=== PATIENT | female | born 1950 | race Caucasian/White ===

== ENCOUNTER 2018-02-06 11:36 | Emergency (ER) | payer MEDICARE, MEDICAID ==
[2018-02-06] MEDS ORDERED: ONDANSETRON HCL IV 4 MG/2 ML VIAL IV ONE (11:43)
[2018-02-06] MEDS ORDERED: 0.9 % SODIUM CHLORIDE 1,000 ML BAG IV ONE (11:43)
[2018-02-06] MEDS ORDERED: KETOROLAC 30 MG/ML VIAL IVP ONE (11:48)
--- NOTE | 2018-02-06 11:49 | Emergency Department Record ---
History of Present Illness - General Chief Complaint: Abdominal Pain Stated Complaint: ABD PAIN Time Seen by Provider: 02/06/18 11:42 Source: Patient Mode of Arrival: Ambulatory Limitations: No limitations - History of Present Illness Initial Comments: 68 yo female presents with abdominal pain, nausea, vomiting. The onset was two nights ago with nausea initially. She developed lower abdominal pain and had some vomiting. No blood in the vomit or stools. The pain she is having is across the lower abdomen and at times in the back on the left. No hematuria. No fever. She has had a history of hysterectomy. No dysuria. MD Complaint: Abdominal pain, Other Onset/Timin -: Days(s) (2) Location: L Flank, LLQ, RLQ Radiation: Back Severity: Moderate Severity scale (1-10): 8 Quality: Aching Consistency: Constant Improves With: Nothing Worsens With: Nothing Associated Symptoms: Anorexia, Nausea - Related Data Allergies Allergy/AdvReac Type Severity Reaction Status Date / Time codeine AdvReac Intermediate NAUSEA Verified 02/06/18 11:44 Travel Screening - Travel/Exposure Within Last 30 Days Have you traveled within the last 30 days?: No Review of Systems Constitutional: Denies: Chills, Fever, Malaise, Weakness Eyes: Denies: Eye discharge ENT: Denies: Congestion, Throat pain Respiratory: Denies: Cough Cardiovascular: Denies: Chest pain, Syncope Endocrine: Denies: Fatigue Gastrointestinal: Reports: Abdominal pain, Nausea, Vomiting. Denies: Constipation, Diarrhea, Hematemesis Genitourinary: Denies: Dysuria, Urgency Musculoskeletal: Denies: Arthralgia, Back pain, Myalgia Skin: Denies: Bruising, Change in color Neurological: Denies: Headache Psychiatric: Denies: Anxiety Hematological/Lymphatic: Denies: Easy bleeding, Easy bruising Physical Exam - General General Appearance: Alert, Oriented x3, Cooperative, No acute distress - Head Head exam: Atraumatic - Eye Eye exam: Normal appearance. negative: Conjunctival injection - ENT ENT exam: Normal exam, Mucous membranes moist Ear exam: Normal external inspection Nasal Exam: Normal inspection Mouth exam: Normal external inspection - Neck Neck exam: Normal inspection - Respiratory Respiratory exam: Normal lung sounds bilaterally. negative: Respiratory distress - Cardiovascular Cardiovascular Exam: Regular rate, Normal rhythm, Normal heart sounds - GI/Abdominal GI/Abdominal exam: Soft, Tenderness (Mild tenderness lower abdomen) - Rectal Rectal exam: Deferred - exam: Deferred - Extremities Extremities exam: Normal inspection. negative: Pedal edema, Tenderness - Back Back exam: Denies: CVA tenderness (R), CVA tenderness (L) - Neurological Neurological exam: Alert, Oriented X3 - Psychiatric Psychiatric exam: Normal affect, Normal mood. negative: Agitated, Anxious - Skin Skin exam: Dry, Intact, Normal color, Warm Course - Reevaluation(s) Reevaluation #1: No acute changes on the CBC The CMP with minimal changes to the LFT's (history of same with fatty liver) Lipase is 197 02/06/18 12:52 02/06/18 14:07 CT is consistent with 3mm left distal obstructing renal stone 02/06/18 14:39 UA is negative for infection The patient was referred to Dr Varghese for the stone and future stones 02/06/18 14:44 Pain is well controlled at [place] Medical Decision Making - Lab Data Result diagrams: 02/06/18 11:50 02/06/18 11:50 Disposition Disposition: Discharge Clinical Impression: Abdominal pain, Renal stone Disposition: Home, Self-Care Condition: (1) Good Instructions: Kidney Stones (ED), Renal Colic (ED) Additional Instructions: Return if you have fever, vomiting, uncontrolled pain You have been referred to Dr Varghese for your renal stone and the remaining stones in your kidney Strain the urine at home to look for the stone Referrals: DARIEN VARGHESE M.D. [MEDICAL DOCTOR] - [facility] Special[facility] Clinics [Provider Group] Forms: Patient Portal Access Time of Disposition: 14:11 Quality - Quality Measures Quality Measures: N/A - Blood Pressure Screening Does Patient Have Any of the Following: No Blood Pressure Classification: Pre-Hypertensive BP Reading Systolic Measurement: 148 Diastolic Measurement: 82 Screening for High Blood Pressure: < Pre-Hypertensive BP, F/U Documented > [ G8950] Pre-Hypertensive Follow-up Interventions: Referral to alternative/primary care provider.
[2018-02-06 11:57] LABS: BASO % 0.4 % (0-6); EOS % 0.4 % (0-6); GRAN % 64.4 % (47-80); HEMATOCRIT 38.7 % (35.0-47.0); LYMPH % 28.3 % (16-45); MEAN CELL VOLUME 88.8 fl (81-97); MEAN CORPUSCULAR HEMOGLOBIN 29.8 pg (27-33); MEAN CORPUSCULAR HGB CONC 33.6 g/dl (32-36); MEAN PLATELET VOLUME 8.8 fl (7.4-10.4); MONO % 6.5 % (0-9); PLATELET COUNT 259 K/uL (130-400); RED BLOOD COUNT 4.36 M/uL (3.80-5.40)
[2018-02-06 12:08] LABS: BLOOD UREA NITROGEN 17 mg/dL (8-23); CREATININE 0.8 mg/dL (0.5-0.9); EST GLOMERULAR FILTRATION RATE > 60 mL/min
[2018-02-06 12:09] LABS: TOTAL PROTEIN 6.9 g/dL (6.6-8.7)
[2018-02-06 12:11] LABS: GLUCOSE,RANDOM 175 mg/dL (74-109)
[2018-02-06 12:13] LABS: ALT/SGPT 56 U/L (<33); AST/SGOT 36 U/L (10.0-35.0)
[2018-02-06 12:14] LABS: ALB/GLOB RATIO 1.7 (1.1-1.8); ALBUMIN 4.3 g/dL (4.0-5.0); ALKALINE PHOSPHATASE 78 U/L (35-104); LIPASE 197 U/L (13-60)
[2018-02-06] MEDS ORDERED: TAMSULOSIN HCL 0.4 MG CAP.ER.24H PO ONE (14:06)
[2018-02-06] MEDS ORDERED: HYDROCODONE/APAP 5/325MG TABLET PO ONE (14:12)
[2018-02-06 14:13] LABS: URINE APPEARANCE CLEAR; URINE BILIRUBIN NEGATIVE (NEGATIVE); URINE BLOOD LARGE (NEGATIVE); URINE COLOR YELLOW; URINE GLUCOSE (UA) NEGATIVE (NEGATIVE); URINE KETONE NEGATIVE (NEGATIVE); URINE LEUKOCYTE ESTERASE TRACE (NEGATIVE); URINE NITRITE NEGATIVE (NEGATIVE); URINE PROTEIN NEGATIVE (NEGATIVE); URINE UROBILINOGEN 0.2 E.U./dL (0.20 - 1.00)
[2018-02-06 14:26] LABS: URINE EPITHELIAL CELLS 0 - 2 (FEW); URINE RBC 36 - 50 (NONE SEEN); URINE WBC 0 - 2 (0-2/hpf)
[2018-02-06 14:27] LABS: URINE BACTERIA FEW
--- NOTE | 2018-02-06 15:00 | Emergency Department Record ---
History of Present Illness - General Chief Complaint: Abdominal Pain Stated Complaint: ABD PAIN Time Seen by Provider: 02/06/18 11:42 Source: Patient Mode of Arrival: Ambulatory Limitations: No limitations - History of Present Illness Initial Comments: 68 yo female presents with abdominal pain that radiates to the back for the last 2 days. She has had some nausea and vomiting as well. No fevers. NO diarrhea. No blood in the stools or vomit. No rash. She has had renal stones in the past. This is different. No history of abdominal surgery except hysterectomy. MD Complaint: Abdominal pain, Other Onset/Timin -: Days(s) (2) Location: L Flank, LLQ, RLQ Radiation: Back Severity: Moderate Severity scale (1-10): 8 Quality: Aching Consistency: Constant Improves With: Nothing Worsens With: Nothing Associated Symptoms: Anorexia, Nausea - Related Data Previous Rx's Medication Instructions Recorded Ondansetron [Zofran Odt] 4 mg PO Q8H #12 tab.rapdis 02/06/18 Allergies Allergy/AdvReac Type Severity Reaction Status Date / Time codeine AdvReac Intermediate NAUSEA Verified 02/06/18 11:44 Travel Screening - Travel/Exposure Within Last 30 Days Have you traveled within the last 30 days?: No Review of Systems Constitutional: Denies: Chills, Fever, Malaise, Weakness Eyes: Denies: Eye discharge ENT: Denies: Congestion, Throat pain Respiratory: Denies: Cough Cardiovascular: Denies: Chest pain, Syncope Endocrine: Denies: Fatigue Gastrointestinal: Reports: Abdominal pain, Nausea, Vomiting. Denies: Constipation, Diarrhea, Hematemesis Genitourinary: Denies: Dysuria, Urgency Musculoskeletal: Denies: Arthralgia, Back pain, Myalgia Skin: Denies: Bruising, Change in color Neurological: Denies: Headache Psychiatric: Denies: Anxiety Hematological/Lymphatic: Denies: Easy bleeding, Easy bruising Past Medical History - SOCIAL HISTORY Smoking Status: Never smoker Alcohol Use: None Drug Use: None - RESPIRATORY Hx Respiratory Disorders: No - CARDIOVASCULAR Hx Cardio Disorders: Yes Hx Hypertension: Yes Comment:: cholesterol - NEURO Hx Neuro Disorders: No - GI Hx GI Disorders: No - Hx Genitourinary Disorders: No - ENDOCRINE Hx Endocrine Disorders: Yes Hx Thyroid Disease: Yes - MUSCULOSKELETAL Hx Musculoskeletal Disorders: No - PSYCH Hx Psych Problems: No - HEMATOLOGY/ONCOLOGY Hx Hematology/Oncology Disorders: No Family Medical History Any Significant Family History?: No Physical Exam - General General Appearance: Alert, Oriented x3, Cooperative, No acute distress Limitations: No limitations - Head Head exam: Atraumatic, Normal inspection - Eye Eye exam: Normal appearance - ENT ENT exam: Normal exam Ear exam: Normal external inspection Nasal Exam: Normal inspection Mouth exam: Normal external inspection - Neck Neck exam: Normal inspection - Respiratory Respiratory exam: Normal lung sounds bilaterally. negative: Respiratory distress - Cardiovascular Cardiovascular Exam: Regular rate, Normal rhythm, Normal heart sounds - GI/Abdominal GI/Abdominal exam: Soft, Tenderness (tender left abdomen). negative: Distended , Guarding, Hernia - Rectal Rectal exam: Deferred - exam: Deferred - Extremities Extremities exam: Normal inspection. negative: Tenderness - Back Back exam: Denies: CVA tenderness (R), CVA tenderness (L) - Neurological Neurological exam: Alert, Oriented X3 - Psychiatric Psychiatric exam: Normal affect, Normal mood - Skin Skin exam: Dry, Intact, Normal color, Warm Course Vital Signs 02/06/18 02/06/18 11:38 12:40 Temperature 98.1 F Pulse Rate 78 Pulse Rate [ 65 Pulse Ox Probe] Respiratory 18 18 Rate Blood Pressure 148/82 Blood Pressure 106/56 [Right Arm] Pulse Ox 97 97 - Reevaluation(s) Reevaluation #1: the CT demonstrates a 3mm distal stone the UA is negative for infection The patient did get complete resolution of the pain we discussed the reasons to return and follow up she was referred to urology for follow up 02/06/18 19:18 Medical Decision Making - Lab Data Result diagrams: 02/06/18 11:50 02/06/18 11:50 Lab Results 02/06/18 02/06/18 02/06/18 Range/Units 11:50 11:50 14:10 WBC 8.0 (4.2-12.2) K/uL RBC 4.36 (3.80-5.40) M/uL Hgb 13.0 (11.6-16.0) gm/dl Hct 38.7 (35.0-47.0) % MCV 88.8 (81-97) fl MCH 29.8 (27-33) pg MCHC 33.6 (32-36) g/dl RDW 13.0 (11.5-14.5) % Plt Count 259 (130-400) K/uL MPV 8.8 (7.4-10.4) fl Gran % 64.4 (47-80) % Lymphocytes % 28.3 (16-45) % Monocytes % 6.5 (0-9) % Eosinophils % 0.4 (0-6) % Basophils % 0.4 (0-6) % Sodium 140 (136-145) mmol/L Potassium 3.7 (3.4-4.5) mmol/L Chloride 101 (98-107) mmol/L Carbon Dioxide 24.0 (22-29) mmol/L Anion Gap 15.0 (7-16) BUN 17 (8-23) mg/dL Creatinine 0.8 (0.5-0.9) mg/dL Estimated GFR > 60 mL/min Random Glucose 175 H (74-109) mg/dL Calcium 9.5 (8.8-10.2) mg/dL Total Bilirubin 0.50 (0.2-1.0) mg/dL AST 36 H (10.0-35.0) U/L ALT 56 H (<33) U/L Alkaline Phosphatase 78 (35-104) U/L Total Protein 6.9 (6.6-8.7) g/dL Albumin 4.3 (4.0-5.0) g/dL Globulin 2.6 (1.4-4.8) gm/dL Albumin/Globulin Ratio 1.7 (1.1-1.8) Lipase 197 H (13-60) U/L Urine Color Yellow Urine Appearance Clear Urine pH 6.0 (5.0-8.0) Ur Specific [place] <= 1.005 (1.002-1.030) Urine Protein Negative (NEGATIVE) Urine Glucose (UA) Negative (NEGATIVE) Urine Ketones Negative (NEGATIVE) Urine Blood Large H (NEGATIVE) Urine Nitrite Negative (NEGATIVE) Urine Bilirubin Negative (NEGATIVE) Urine Urobilinogen 0.2 (0.20 - 1.00) E.U./dL Ur Leukocyte Esterase Trace H (NEGATIVE) Urine RBC 36 - 50 (NONE SEEN) Urine WBC 0 - 2 (0-2/hpf) Ur Epithelial Cells 0 - 2 (FEW) Urine Bacteria Few Disposition Disposition: Discharge Clinical Impression: Abdominal pain, Renal stone Disposition: Home, Self-Care Condition: (1) Good Instructions: Kidney Stones (ED), Renal Colic (ED) Additional Instructions: Return if you have fever, vomiting, uncontrolled pain You have been referred to Dr Varghese for your renal stone and the remaining stones in your kidney Strain the urine at home to look for the stone Prescriptions: Ondansetron [Zofran Odt] 4 mg PO Q8H #12 tab.rapdis Referrals: [facility] Specialty Clinics [Provider Group] DARIEN VARGHESE M.D. [MEDICAL DOCTOR] - Forms: Patient Portal Access Time of Disposition: 15:00 Quality - Quality Measures Quality Measures: N/A - Blood Pressure Screening Does Patient Have Any of the Following: No Blood Pressure Classification: Normal BP Reading Systolic Measurement: 117 Diastolic Measurement: 66 Screening for High Blood Pressure: < Normal BP, F/U Not Required > [G8783] Pre-Hypertensive Follow-up Interventions: Referral to alternative/primary care provider.
== END 2018-02-06 15:01 | disposition home or self-care (01) ==
LOC: ER 11:36
DX: N20.0 Calculus of kidney (principal); R11.0 Nausea; I10 Essential (primary) hypertension; Z87.442 Personal history of urinary calculi
CPT/HCPCS: 99284 ×2; 96374; 96375; 96361; 83690; 85025; 80053; 81001; 74177; Q9967; J1885; J2405; J7030

== ENCOUNTER 2018-02-07 14:47 | Emergency (ER) | payer MEDICARE, MEDICAID ==
[2018-02-07] MEDS ORDERED: KETOROLAC 30 MG/ML VIAL IM ONE (15:02)
--- NOTE | 2018-02-07 15:09 | Emergency Department Record ---
History of Present Illness - General Chief complaint: Flank Pain Stated complaint: FLANK PAIN Time Seen by Provider: 02/07/18 14:54 Source: Patient Mode of Arrival: Ambulatory Limitations: No limitations - History of Present Illness Initial comments: The patient is here due to LLQ AP for the last 3 days. The pain is sharp and stabbing in the LLQ. She denies any nausea or vomiting. The patient was here yesterday and was diagnosed with a 3mm distal L ureter stone. The pain is not improved today so she is here for recheck. MD Complaint: Other Onset/Timin -: Days(s) Severity: Severe Severity scale (1-10): 10 Quality: Sharp Consistency: Constant, Intermittent Improves with: None Worsens with: None Associated Symptoms: Nausea/vomiting - Related Data Previous Rx's Medication Instructions Recorded Ondansetron [Zofran Odt] 4 mg PO Q8H #12 tab.rapdis 02/06/18 Hydrocodone/Acetaminophen [Onyx 1 - 2 each PO QID #12 tablet 02/07/18 5-325 Tablet] Tamsulosin HCl [Flomax] 0.4 mg PO DAILY #7 cap.er.24h 02/07/18 Allergies Allergy/AdvReac Type Severity Reaction Status Date / Time codeine AdvReac Intermediate NAUSEA Verified 02/07/18 14:57 Travel Screening - Travel/Exposure Within Last 30 Days Have you traveled within the last 30 days?: No Review of Systems Constitutional: Denies: Chills, Fever Eyes: Denies: Eye discharge ENT: Denies: Congestion Respiratory: Denies: Cough, Dyspnea Cardiovascular: Denies: Chest pain Endocrine: Denies: Fatigue Gastrointestinal: Reports: Abdominal pain, Nausea. Denies: Diarrhea, Vomiting Genitourinary: Denies: Dysuria Musculoskeletal: Reports: Back pain Skin: Denies: Bruising Neurological: Denies: Abnormal gait Past Medical History - SOCIAL HISTORY Smoking Status: Never smoker Alcohol Use: None Drug Use: None - RESPIRATORY Hx Respiratory Disorders: No - CARDIOVASCULAR Hx Cardio Disorders: Yes Hx Hypertension: Yes Comment:: cholesterol - NEURO Hx Neuro Disorders: No - GI Hx GI Disorders: No - Hx Genitourinary Disorders: Yes Hx Kidney Stones: Yes - ENDOCRINE Hx Endocrine Disorders: Yes Hx Thyroid Disease: Yes - MUSCULOSKELETAL Hx Musculoskeletal Disorders: No - PSYCH Hx Psych Problems: No - HEMATOLOGY/ONCOLOGY Hx Hematology/Oncology Disorders: No Family Medical History Any Significant Family History?: No Physical Exam - General General Appearance: Alert, Oriented x3, Cooperative, No acute distress - Head Head exam: Atraumatic, Normocephalic, Normal inspection - Eye Eye exam: Normal appearance, PERRL - Neck Neck exam: Normal inspection, Full ROM. negative: Tenderness - Respiratory Respiratory exam: Normal lung sounds bilaterally. negative: Respiratory distress - Cardiovascular Cardiovascular Exam: Regular rate, Normal rhythm, Normal heart sounds - GI/Abdominal GI/Abdominal exam: Soft, Normal bowel sounds. negative: Rebound, Rigid, Tenderness - Extremities Extremities exam: Normal inspection, Full ROM, Normal capillary refill. negative: Tenderness Course Vital Signs 02/07/18 14:53 Temperature 98.1 F Pulse Rate 99 H Respiratory 20 Rate Blood Pressure 194/108 Pulse Ox 96 - Reevaluation(s) Reevaluation #1: The patient is doing a little bit better with the pain. She denies any nausea or vomiting and appears very comfortable and ready for discharge. I did discuss the need for F/U tomorrow with Dr. Varghese. We did get her an appointment with him tomorrow morning at 9:45. 02/07/18 15:51 Medical Decision Making - Data Complexity MDM Data: Labs Ordered and/or Reviewed, Review and Summary of Old Record Discussed - Lab Data Result diagrams: 02/07/18 15:02 02/07/18 15:10 Disposition Disposition: Discharge Clinical Impression: Renal stone Disposition: Home, Self-Care Condition: (2) Stable Instructions: Ureteral Stones (ED) Additional Instructions: Please drink plenty of fluids and take the Onyx for pain. Please use your home Zofran if needed and take the Flomax as directed. Please see Dr. Varghese tomorrow morning as planned. Return to the ER for any worsening pain, fever, or vomiting. Prescriptions: Hydrocodone/Acetaminophen [Onyx 5-325 Tablet] 1 - 2 each PO QID #12 tablet Tamsulosin HCl [Flomax] 0.4 mg PO DAILY #7 cap.er.24h Referrals: DARIEN VARGHESE M.D. [MEDICAL DOCTOR] - Forms: Patient Portal Access Time of Disposition: 15:54 Quality - Quality Measures Quality Measures: N/A - Blood Pressure Screening View Details: Yes Does Patient Have Any of the Following: No Blood Pressure Classification: Hypertensive Reading Systolic Measurement: 194 Diastolic Measurement: 108 Screening for High Blood Pressure: < First Hypertensive BP, F/U Documented > [ G8950] First Hypertensive Follow-up Interventions: Referral to alternative/primary care provider.
[2018-02-07 15:22] LABS: BASO % 0.4 % (0-6); EOS % 1.1 % (0-6); GRAN % 56.8 % (47-80); HEMATOCRIT 39.2 % (35.0-47.0); HEMOGLOBIN 13.1 gm/dl (11.6-16.0); LYMPH % 34.4 % (16-45); MEAN CELL VOLUME 89.3 fl (81-97); MEAN CORPUSCULAR HEMOGLOBIN 29.8 pg (27-33); MEAN CORPUSCULAR HGB CONC 33.4 g/dl (32-36); MEAN PLATELET VOLUME 9.1 fl (7.4-10.4); MONO % 7.3 % (0-9); PLATELET COUNT 257 K/uL (130-400); RED BLOOD COUNT 4.39 M/uL (3.80-5.40); WHITE BLOOD COUNT W/O DIFF 7.5 K/uL (4.2-12.2)
[2018-02-07 15:23] LABS: URINE APPEARANCE CLEAR; URINE BILIRUBIN NEGATIVE (NEGATIVE); URINE BLOOD LARGE (NEGATIVE); URINE COLOR YELLOW; URINE GLUCOSE (UA) NEGATIVE (NEGATIVE); URINE KETONE NEGATIVE (NEGATIVE); URINE LEUKOCYTE ESTERASE TRACE (NEGATIVE); URINE NITRITE NEGATIVE (NEGATIVE); URINE PROTEIN NEGATIVE (NEGATIVE); URINE UROBILINOGEN 0.2 E.U./dL (0.20 - 1.00)
[2018-02-07 15:30] LABS: BLOOD UREA NITROGEN 16 mg/dL (8-23); CREATININE 0.9 mg/dL (0.5-0.9); EST GLOMERULAR FILTRATION RATE > 60 mL/min
[2018-02-07 15:33] LABS: GLUCOSE,RANDOM 124 mg/dL (74-109)
[2018-02-07 15:36] LABS: LIPASE 44 U/L (13-60)
[2018-02-07 15:37] LABS: URINE MUCUS LIGHT; URINE RBC 36 - 50 (NONE SEEN)
[2018-02-07] MEDS ORDERED: HYDROCODONE/APAP 5/325MG TABLET PO ONE (15:55)
== END 2018-02-07 16:12 | disposition home or self-care (01) ==
LOC: ER 14:47
DX: N20.0 Calculus of kidney (principal); R11.2 Nausea with vomiting, unspecified; R10.32 Left lower quadrant pain; I10 Essential (primary) hypertension; Z87.442 Personal history of urinary calculi
CPT/HCPCS: 99283; 96372; 99284; 83690; 85025; 80048; 81001; J1885